=== PATIENT | female | born 1965 | race Caucasian/White ===

== ENCOUNTER 2025-02-16 19:45 | Emergency (ER) | payer OTHER ==
[~2025-02-16] VITALS: Ht 165.1 cm; Wt 90.7 kg
[2025-02-16] MEDS ORDERED: LEVSOD112 PO (20:09)
== END 2025-02-16 20:08 | disposition home or self-care (01) ==
LOC: ER 19:45
DX: Z76.0 Encounter for issue of repeat prescription (principal); Z79.890 Hormone replacement therapy
CPT/HCPCS: 99281